=== PATIENT | female | born 1975 | race Caucasian/White ===

== ENCOUNTER 2018-10-25 08:53 | Emergency (ER) | payer MEDICAID ==
[~2018-10-25] VITALS: Ht 152.4 cm; Wt 73.0 kg
[2018-10-25 08:58] VITALS: BP 115/71
[2018-10-25] MEDS: KETOROLAC 60 MG/2 ML VIAL IM ONE (09:38)
[2018-10-25 09:53] VITALS: BP 120/72
== END 2018-10-25 09:53 | disposition home or self-care (01) ==
LOC: MED 08:53
DX: K08.89 Other specified disorders of teeth and supporting structures (principal)
CPT/HCPCS: 96372; 99283; J1885